=== PATIENT | male | born 1975 | race Caucasian/White ===

== ENCOUNTER 2018-01-31 16:42 | Emergency (ER) | payer MEDICAID ==
[~2018-01-31] VITALS: Ht 177.8 cm; Wt 78.0 kg
[2018-01-31 16:47] VITALS: BP 120/85
--- NOTE | 2018-01-31 16:53 | NUR ---
PATIENT AMBULATED TO BED 4 AT THIS TIME.
--- NOTE | 2018-01-31 16:55 | NUR ---
Notified er md Buck regarding patient's condition. Gave report to Nona DANIELS.
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
--- NOTE | 2018-01-31 17:05 | NUR ---
ER MD SOLANO BY BEDSIDE EXAMINING PATIENT
[2018-01-31] MEDS ORDERED: LIDOCAINE 1% 500 MG/50 ML VIAL INJ SCH (17:10)
[2018-01-31] MEDS ORDERED: LIDOCAINE MPF 1% - 5 mL VIAL 10 ML ONE (17:19)
--- NOTE | 2018-01-31 17:36 | NUR ---
PATIENT TO CT VIA GURNEY ACCOMPANIED BY REFRIGERATION INSULATOR
[2018-01-31] MEDS ORDERED: HYDROcodone/APAP 5/325 MG 1 TAB TAB PO ONE (18:30)
[2018-01-31] MEDS ORDERED: NEOMYCIN/POLYMYXIN/BACITRACIN 0.9 GM/1 PKT TP ONE (18:56)
[2018-01-31 19:07] VITALS: BP 118/81
== END 2018-01-31 19:07 | disposition home or self-care (01) ==
LOC: MED 16:42
DX: S01.01XA Laceration without foreign body of scalp, initial encounter (principal); W22.8XXA Striking against or struck by other objects, initial encounter; Y93.89 Activity, other specified; Y92.098 Other place in other non-institutional residence as the place of occurrence of the external cause; Y99.0 Civilian activity done for income or pay
CPT/HCPCS: 12001; 70450; 90471; 90715; 99284; J2001

== ENCOUNTER 2018-02-13 06:00 | Emergency (ER) | payer MEDICAID ==
[~2018-02-13] VITALS: Ht 180.3 cm; Wt 81.6 kg
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
--- NOTE | 2018-02-13 06:05 | NUR ---
PT AMBULATORY TO ER BED 3.
[2018-02-13 06:10] VITALS: BP 138/69
--- NOTE | 2018-02-13 06:15 | NUR ---
DR GREENBERG @ BEDSIDE
[2018-02-13 06:27] VITALS: BP 132/70
--- NOTE | 2018-02-13 06:28 | NUR ---
Patient discharged with v/s stable. Written and verbal after care instructions given and explained. Patient verbalized understanding. Ambulatory with steady gait. All questions addressed prior to discharge. Advised to follow up with PMD.
== END 2018-02-13 06:28 | disposition home or self-care (01) ==
LOC: MED 06:00
DX: S01.81XD Laceration without foreign body of other part of head, subsequent encounter (principal); X58.XXXD Exposure to other specified factors, subsequent encounter
CPT/HCPCS: 99281

== ENCOUNTER 2019-10-10 16:22 | Emergency (ER) | payer MEDICAID ==
[~2019-10-10] VITALS: Ht 175.3 cm; Wt 90.3 kg
[2019-10-10 16:31] VITALS: BP 127/74
[2019-10-10] MEDS ORDERED: KETOROLAC 30 MG/ML VIAL IM ONE (16:45)
[2019-10-10 17:55] VITALS: BP 121/78
== END 2019-10-10 17:55 | disposition home or self-care (01) ==
LOC: MED 16:22
DX: S60.222A Contusion of left hand, initial encounter (principal); S80.01XA Contusion of right knee, initial encounter; R03.0 Elevated blood-pressure reading, without diagnosis of hypertension; W01.0XXA Fall on same level from slipping, tripping and stumbling without subsequent striking against object, initial encounter; Y93.89 Activity, other specified; Y92.89 Other specified places as the place of occurrence of the external cause; Y99.8 Other external cause status
CPT/HCPCS: 73130; 73562; 96372; 99284; J1885